=== PATIENT | male | born 1940 | race Caucasian/White ===

== ENCOUNTER 2017-02-09 02:24 | Observation (INO) | payer MEDICARE ==
[~2017-02-09] VITALS: Ht 193 cm; Wt 97.0 kg
[2017-02-09] VITALS (14 sets, daily range): BP systolic 110–183; BP diastolic 59–94; PULSE 56–71; RESP 16–22; TEMP 97.6–98.2; O2SAT 94–100
[~2017-02-09 02:24] MED LIST: BACL10TA PO; IBUP800T23 PO; METH500T3 PO; RANI150
[2017-02-09] MEDS ORDERED: IOHEXOL 350 MG/ML 10 ML VIAL (for RAD DIAG) IVCONTRAST ONE (02:25)
[2017-02-09] MEDS ORDERED: ASPIRIN 81 MG CHEW TAB PO ONE (02:30)
[2017-02-09] MEDS ORDERED: SODIUM CHLORIDE 0.9% FLUSH 10 ML FLUSH IVF PRN (02:30)
[2017-02-09 02:39] LABS: AUTOMATED NEUTROPHIL # 4.3 TH/MM3 (1.8-7.7); BASOPHIL % 0.8 % (0.0-2.0); EOSINOPHIL # 0.1 TH/MM3 (0-0.4); HEMATOCRIT 36.2 % (39.0-51.0); HEMO FLAGS DIFF FINAL; LYMPH % 14.4 % (9.0-44.0); LYMPHOCYTE # 0.8 TH/MM3 (1.0-4.8); MEAN CELL VOLUME 87.1 FL (80.0-100.0); MEAN CORPUSCULAR HEMOGLOBIN 28.8 PG (27.0-34.0); MONO % 7.5 % (0.0-8.0); NEUT % 75.3 % (16.0-70.0); PLATELET COUNT 162 TH/MM3 (150-450); RED BLOOD COUNT 4.16 MIL/MM3 (4.50-5.90); RED CELL DISTRIBUTION WIDTH 16.8 % (11.6-17.2); WHITE BLOOD COUNT 5.7 TH/MM3 (4.0-11.0)
[2017-02-09] MEDS ORDERED: BACL10TA PO (02:39)
[2017-02-09] MEDS ORDERED: WARF-21 PO (02:39)
[2017-02-09] MEDS ORDERED: ATOR20TA15 PO (02:39)
[2017-02-09] MEDS ORDERED: METO25TA3 PO (02:39)
[2017-02-09] MEDS: NITROGLYCERIN 0.4 MG SL 25 TABS/BTL SL SCH ×3 (02:49→03:14)
[2017-02-09 02:54] LABS: APTT (PATIENT) 27.1 SEC (24.3-30.1); INTERNATIONAL NORMALIZED RATIO 1.1 RATIO; PROTHROMBIN TIME - PATIENT 11.8 SEC (9.8-11.6)
[2017-02-09 03:03] LABS: ALT (GPT) 19 U/L (12-78); ANION GAP 7 MEQ/L (5-15); AST (GOT) 13 U/L (15-37); BICARBONATE 27.8 MEQ/L (21.0-32.0); BLOOD UREA NITROGEN 17 MG/DL (7-18); CHLORIDE 108 MEQ/L (98-107); GLOMERULAR FILTRATION RATE 50 ML/MIN (>89); POTASSIUM 3.7 MEQ/L (3.5-5.1); SODIUM (NA) 143 MEQ/L (136-145)
[2017-02-09 03:07] LABS: ALKALINE PHOSPHATASE 83 U/L (45-117); CREATINE KINASE 129 U/L (39-308); TOTAL BILIRUBIN ADULT 0.5 MG/DL (0.2-1.0)
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
[2017-02-09] MEDS ORDERED: MORPHINE SULFATE 4 MG/ML INJ IV PUSH ONE (03:30)
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
--- NOTE | 2017-02-09 04:10 | RADRPT ---
EXAM DATE/TIME: 02/09/2017 03:17 [facility] COMPARISON: No previous studies available for comparison. INDICATIONS : Chest pain IV CONTRAST: 100 cc Omnipaque 350 (iohexol) IV RADIATION DOSE: 10.23 CTDIvol (mGy) MEDICAL HISTORY : Hypertension. SURGICAL HISTORY : Appendectomy. Cholecystectomy.Abdominal aortic aneurysm repair.CABG ENCOUNTER: Initial ACUITY: 2 days PAIN SCALE: 6/10 LOCATION: chest TECHNIQUE: Volumetric scanning was performed using a multi-row detector CT scanner. The data was post processed with a variety of visualization algorithms including full volume maximum intensity projection, multi -planar sliding thin slab reformation, curved planar reformation, and surface rendering techniques. Using automated exposure control and adjustment of the mA and/or kV according to patient size, radiat ion dose was kept as low as reasonably achievable to obtain optimal diagnostic quality images. DICOM format image data is available electronically for review and comparison. FINDINGS: LUNGS: Bibasilar atelectatic changes. No concerning pulmonary nodule is visualized. No pleural fluid is pr esent. MEDIASTINUM: No abnormally enlarged lymph nodes by CT criteria. No axillary or hilar abnormalities are identified. Small hiatal hernia. Atherosclerotic calcification of the coronary arteries. Aortic valve prostheses . ABDOMEN: The liver and spleen are free of focal defects. Gallbladder is surgically absent. Pancreas is radiogr aphically normal. The adrenal glands are normal. Nonobstructing 5 mm stone in the lower pole collecti ng system of the left kidney. 1.5 cm cortical cyst in the lower pole of left kidney. No free fluid or abdominal masses are identified. No para-aortic adenopathy is seen. 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 PELVIS: No evidence of free fluid or pelvic mass. No abnormally enlarged inguinal or retroperitoneal lymph no bonita are present. The bladder is unremarkable. THORACIC AORTA: A standing thoracic aorta is borderline aneurysmal at 4 cm. Arch vessels are patent. Descending thora cic aorta is normal in caliber. ABDOMINAL AORTA: Endovascular stent graft repair for abdominal aortic aneurysm. Stent graft remains patent. PELVIC VESSELS: The internal iliac and external iliac vessels are patent without aneurysm or stenosis. CONCLUSION: 1. Borderline aneurysmal disease of the ascending thoracic aorta measuring 4 cm in diameter. Prior en dovascular stent graft repair for presumed previous abdominal aortic aneurysm. Thoracoabdominal aorta is otherwise normal in caliber. 2. 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 3. Aortic valve prostheses. 4. Atherosclerotic calcification of the coronary arteries. Cali Chávez MD on February 09, 2017 at 4:00 Board Certified Radiologist. This report was verified electronically.
[2017-02-09] MEDS ORDERED: SODIUM CHLORIDE 0.9% FLUSH 10 ML FLUSH IV FLUSH PRN (05:15)
[2017-02-09 06:41] LABS: CREATINE KINASE 115 U/L (39-308)
[2017-02-09 06:53] LABS: CKMB 1.8 NG/ML (0.5-3.6)
[2017-02-09] MEDS ORDERED: SODIUM CHLORIDE 0.9% FLUSH 10 ML FLUSH IV FLUSH SCH (09:00)
[2017-02-09 09:23] LABS: CREATINE KINASE 106 U/L (39-308)
[2017-02-09 09:35] LABS: CKMB 1.8 NG/ML (0.5-3.6)
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
[2017-02-09] MEDS ORDERED: METO25TA6 PO ×2 (09:42→15:03)
[2017-02-09] MEDS ORDERED: LANOXIN PO (09:44)
[2017-02-09] MEDS ORDERED: METOPROLOL SUCCINATE 25 MG EXTENDED RELEASE TAB PO SCH (11:00)
[2017-02-09] MEDS ORDERED: REGADENOSON INJ 0.4 MG/5 ML SYR ONE (13:16)
--- NOTE | 2017-02-09 14:13 | TR ---
Date Performed: 02/09/2017 Time Performed: 13:30:27 DOCTOR: Go Carlisle DRUG LIST: CLINICAL HISTORY: ANGINA REASON FOR TEST: Angina REASON FOR ENDING: OBSERVATION: CONCLUSION: Lexiscan stress test was performed under standard four minute protocol. Radionuclid e was injected one minute prior to ending the test. No electrocardiographic abormalities were present to suggest ischemia. Nuclear imaging and interpretation are pending. COMMENTS:
--- NOTE | 2017-02-09 14:16 | EKG ---
Date Performed: 02/09/2017 Time Performed: 05:48:20 PTAGE: 76 years EKG: SINUS BRADYCARDIA MODERATE VOLTAGE CRITERIA FOR LVH, CONSIDER NORMAL VARIANT NONSPECIFIC T- WAVE ABNORMALITY PROLONGED QT INTERVAL ABNORMAL ECG PREVIOUS TRACING : 02/09/2017 02.26 Since previous tracing, no significant change noted DOCTOR: Go Carlisle Interpretating Date/Time 02/09/2017 14:15:23
--- NOTE | 2017-02-09 14:22 | EKG ---
Date Performed: 02/09/2017 Time Performed: 02:26:44 PTAGE: 76 years EKG: Sinus rhythm BORDERLINE LEFT AXIS DEVIATION LEFT VENTRICULAR HYPERTROPHY AND ST-T CHANGE ABNORMAL ECG PREVIOUS TRACING : 10/19/2011 12.39 Compared to previous tracing,lLeft ventricular hypertrophy is new. DOCTOR: Go Carlisle Interpretating Date/Time 02/09/2017 14:20:43
--- NOTE | 2017-02-09 14:23 | EKG ---
Date Performed: 02/09/2017 Time Performed: 08:32:29 PTAGE: 76 years EKG: JUNCTIONAL BRADYCARDIA MARKED LEFT AXIS DEVIATION LEFT VENTRICULAR HYPERTROPHY AND ST-T SAVAGE NGE ABNORMAL ECG PREVIOUS TRACING : 02/09/2017 08.31 Since previous tracing, no significant change noted DOCTOR: Go Carlisle Interpretating Date/Time 02/11/2017 07:09:33
--- NOTE | 2017-02-09 14:45 | RADRPT ---
EXAM DATE/TIME: 02/09/2017 12:52 [facility] COMPARISON: No previous studies available for comparison. INDICATIONS : Mid chest pain for one day. Angina. Coronary artery disease. DOSE: 25.5 mCi Tc99m Myoview at stress. 8.7 mCi Tc99m Myoview at rest. 0.4 mg Lexiscan STRESS SYMPTOMS: Shortness of breath. EJECTION FRACTION: 54% MEDICAL HISTORY : Cardiovascular disease. Hypertension. SURGICAL HISTORY : CABG Abdominal aortic aneurysm repair. ENCOUNTER: Initial ACUITY: 1 day PAIN SCALE: 7/10 LOCATION: Midsternal chest TECHNIQUE: The patient underwent pharmacologic stress with infusion of prescribed dose. Continuous ECG tracing was monitored during stress. Gated SPECT imaging was performed after stress and conventional SPECT i maging was performed at rest. The examination was performed on a SPECT/CT scanner, both attenuation and non-corrected datasets were reviewed. FINDINGS: DISTRIBUTION: The maximum perfused segment at stress is in the septal wall. PERFUSION STUDY: Small regions of perfusion abnormality in the anterolateral wall. GATED STUDY: There is intact wall motion and thickening without hypokinetic or dyskinetic segments. CONCLUSION: 1. Small regions of stress induced perfusion abnormality in the anterolateral wall. 2. No focal wall motion abnormality with EF of 54%. RISK CATEGORY: Low (<1% Annual Mortality Rate) Joe Luke MD on February 09, 2017 at 14:41 Board Certified Radiologist. This report was verified electronically.
--- NOTE | 2017-02-09 15:07 | HHI.DCPOC ---
Discharge Care Plan Diagnosis: (1) Hypertension (2) Hyperlipidemia (3) Thoracic aortic aneurysm (4) Chest pain, atypical (5) CAD (coronary artery disease) (6) Hx of CABG Goals to Promote Your Health * To prevent worsening of your condition and complications * To maintain your health at the optimal level Directions to Meet Your Goals Take your medications as prescribed Follow your dietary instruction Follow activity as directed Keep your appointments as scheduled Take your immunizations and boosters as scheduled If your symptoms worsen call your PCP, if no PCP go to Urgent Care Center or Emergency Room Smoking is Dangerous to Your Health. Avoid second hand smoke Call the 24-hour hour crisis hotline for domestic abuse at Ruslan Yates Feb 09, 2017 15:07
[2017-02-09] MEDS ORDERED: ATORVASTATIN 20 MG TAB PO SCH (21:00)
== END 2017-02-09 15:39 | disposition home or self-care (01) ==
LOC: NEPC 02:24 → NEDA 05:11 → NEPFCDU 06:25
DX: R07.9 Chest pain, unspecified (principal); I10 Essential (primary) hypertension; I25.10 Atherosclerotic heart disease of native coronary artery without angina pectoris; E78.5 Hyperlipidemia, unspecified; K21.9 Gastro-esophageal reflux disease without esophagitis; I71.2 Thoracic aortic aneurysm, without rupture; Z95.2 Presence of prosthetic heart valve; Z95.1 Presence of aortocoronary bypass graft
CPT/HCPCS: 71010; 71275; 74174; 78452; 80053; 82550; 82552; 84484; 85025; 85610; 85730; 93005; 93017; 96374; 99285; A9502; G0378; J2270; J2785; Q9967